=== PATIENT | female | born 1940 | race Caucasian/White ===

== ENCOUNTER 2024-11-14 13:59 | Inpatient (IN) | payer MEDICARE, OTHER, SELFPAY ==
[2024-11-14] VITALS (38 sets, daily range): BP systolic 106–164; BP diastolic 69–107; PULSE 82–105; TEMP 36.3–36.6; O2SAT 88–99; BMI 21.5; BMI 17.6
--- NOTE | 2024-11-14 14:00 | ECG_ITS ---
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
--- NOTE | 2024-11-14 14:03 | ED_ITS ---
HPI HPI - General Adult General Chief complaint: Altered Mental Status Stated complaint: WEAKNESS Time Seen by Provider: 11/14/24 14:00 Source: patient and EMR Mode of arrival: ambulance History of Present Illness HPI narrative: Patient is an 83-year-old female who presents to the emergency department for increasing confusion and frequent falls over the last 4 days. long term reports that the patient lives in assisted living. She has had generalized weakness and frequent falls and in the last 4 days has been much more confused. Today the nurse states that she had not seen the patient over the weekend and when she evaluated her today, she seemed much more confused and was having difficulty feeding herself. She was pocketing food. On arrival to the ER, patient denies any pain. Her recently was treated for influenza, patient was prophylactically placed on Tamiflu. She continues to have a cough but the assisted-living staff does not believe she has had a fever. No vomiting or diarrhea. she is a DNR Comfort Care arrest Related Data Allergies Allergy/AdvReac Type Severity Reaction Status Date / Time No Known Drug Allergies Allergy Verified 11/14/24 15:18 Opioid HPI Opioid Management Most Recent Opioid Data: No Data to Display Review of Systems ROS Constitutional Denies: fever or chills Cardiovascular Denies: chest pain Respiratory Reports: cough; Denies: shortness of breath Gastrointestinal Denies: vomiting or diarrhea Integumentary/Breast Denies: rash Neurological Reports: confusion and behavioral changes; Denies: dizziness Hematologic/Lymphatic Denies: easy bruising or easy bleeding PFSH PFSH Social History Little interest or pleasure in doing things: not at all Feeling down, depressed, or hopeless: not at all Exam Narrative Exam Narrative: Gen.: Awake, alert, in no distress Head: Normocephalic, atraumatic ENT: Moist mucous membranes, no visible signs of facial or dental injury. Respiratory: No respiratory distress, lungs clear bilaterally Cardio: Regular rate and rhythm Gastrointestinal: Abdomen is soft, nondistended and nontender to palpation, hips are nontender and pelvis is stable Extremities: Moves extremities equally, no injuries noted Psych: Normal mood and affect Neuro: No focal neuro deficit Skin: Warm, dry, intact Constitutional Vital Signs, click to edit/add: Last Vital Signs Temp 97.4 F L 11/14/24 14:01 Pulse 92 H 11/14/24 17:01 Resp 19 11/14/24 17:01 BP 156/81 H 11/14/24 17:01 Pulse Ox 91 L 11/14/24 17:01 O2 Del Method Room Air 11/14/24 14:52 Course Vital Signs Vital signs: Vital Signs Temperature 97.4 F L 11/14/24 14:01 Pulse Rate 96 H 11/14/24 14:01 Respiratory Rate 18 11/14/24 14:01 Blood Pressure 106/87 11/14/24 14:01 Pulse Oximetry 99 11/14/24 14:01 Oxygen Delivery Method Room Air 11/14/24 14:01 Temperature 97.4 F L 11/14/24 14:01 Pulse Rate 92 H 11/14/24 17:01 Respiratory Rate 19 11/14/24 17:01 Blood Pressure 156/81 H 11/14/24 17:01 Pulse Oximetry 91 L 11/14/24 17:01 Oxygen Delivery Method Room Air 11/14/24 14:52 Medical Decision Making MDM Narrative Medical decision making narrative: CTs of the head, C-spine, x-rays of the chest and pelvis with no evidence of acute process. Patient is negative for flu and COVID. She received a breathing treatment for her cough and congestion. EKG with no acute changes. Urine specimen shows no evidence of acute process although the patient has trace ketones and elevated BUN and creatinine. She is admitted to the hospitalist for confusion, frequent falls, dehydration. Stable at time of admission. She received IV magnesium, oral potassium. She was able to tolerate oral potassium with no difficulty. SUPERVISED APC VISIT, PHYSICIAN ATTESTATION: Based on the medical record the care appears appropriate. ? Medical Records Medical records reviewed: Yes I reviewed the patient's medical records Lab Data Lab results reviewed: Yes I reviewed the patient's lab results Labs: Lab Results 11/14/24 11/14/24 11/14/24 Range/Units 14:28 14:30 15:32 WBC 10.8 (4.0-11.0) 10^3/uL RBC 3.55 L (4.20-5.40) 10^6/uL Hgb 11.8 L (12.0-16.0) g/dL Hct 34.1 L (36.0-48.0) % MCV 96.1 (81.0-99.0) fL MCH 33.2 (26.7-34.0) pg MCHC 34.6 (29.9-35.2) g/dL RDW 11.9 (11.0-15.0) % Plt Count 233 (150-450) 10^3/uL MPV 10.6 (9.5-13.5) fL Neut % (Auto) 74.3 (43.0-75.0) % Lymph % (Auto) 16.0 L (20.5-60.0) % [place] % (Auto) 8.7 (1.7-12.0) % Eos % (Auto) 0.4 L (0.9-7.0) % Baso % (Auto) 0.2 (0.2-2.0) % Neut # (Auto) 8.1 H (1.4-6.5) 10^3/uL Lymph # (Auto) 1.7 (1.2-3.8) 10^3/uL [place] # (Auto) 0.9 H (0.3-0.8) 10^3/uL Eos # (Auto) 0.0 (0.0-0.7) 10^3/uL Baso # (Auto) 0.0 (0.0-0.1) 10^3/uL Abs Immat Gran (auto) 0.04 H (0.00-0.03) 10^3/uL Imm/Tot Granulo (auto) 0.4 (0.0-0.5) % PT 11.9 H (9.0-11.6) sec INR 1.14 Sodium 135 L (136-145) mmol/L Potassium 3.0 L (3.5-5.1) mmol/L Chloride 97 L (98-107) mmol/L Carbon Dioxide 33.5 H (21.0-32.0) mmol/L Anion Gap 7.5 BUN 32.0 H (7.0-18.0) mg/dL Creatinine 1.72 H (0.55-1.02) mg/dL Est GFR ( Amer) 34 L (>=60 mL/min/1.73m^2) Est GFR (Non-Af Amer) 28 L (>=60 mL/min/1.73m^2) BUN/Creatinine Ratio 18.6 Glucose 104 (74-106) mg/dL Lactate 1.4 (0.4-2.0) mmol/L Calcium 12.9 H (8.5-10.1) mg/dL Magnesium 1.2 L (1.8-2.4) mg/dL Total Bilirubin 0.7 (0.2-1.0) mg/dL AST 25 (15-37) U/L ALT 25 (14-59) U/L Alkaline Phosphatase 117 H (46-116) U/L Troponin I High Sens 14.0 (4.0-51.3) pg/mL Total Protein 7.9 (6.4-8.2) g/dL Albumin 3.3 L (3.4-5.0) g/dL Globulin 4.6 g/dL Albumin/Globulin Ratio 0.7 TSH 1.144 (0.358-3.740) uIU/mL Urine Color Yellow (YELLOW) Urine Clarity Clear (CLEAR) Urine pH 5.5 (5.0-9.0) Ur Specific [place] 1.020 (1.005-1.025) Urine Protein Negative (NEG/TRACE) mg/dL Urine Glucose (UA) Negative (NEGATIVE) mg/dL Urine Ketones Trace A (NEGATIVE) mg/dL Urine Occult Blood Negative (NEGATIVE) Urine Nitrite Negative (NEGATIVE) Urine Bilirubin Negative (NEGATIVE) Urine Urobilinogen 1.0 (0.2-1.0) EU/dL Ur Leukocyte Esterase Negative (NEGATIVE) Urine RBC 0-2 (0-2) #/HPF Urine WBC None seen (NONE SEEN) #/HPF Ur Squamous Epith Cells Few A (NONE/RARE) #/LPF Urine Crystals None seen (None Seen) #/HPF Urine Bacteria Trace A (NONE SEEN) #/HPF Urine Casts Seen A (NONE SEEN) #/LPF Hyaline Casts Few Urine Mucus None seen (NONE SEEN) Ur Culture Indicated? No Influenza Type A Ag Negative Influenza Type B Ag Negative SARS-CoV-2 Ag (CV2AG) Negative (NEGATIVE) ECG Data Attestation: I personally reviewed and interpreted this ECG as follows: (Normal sinus rhythm at a rate of 91, first-degree AV block with no acute ST elevation or ectopy. EKG reviewed by attending physician) Discharge Plan Discharge Chief Complaint: Altered Mental Status Time of Disposition Decision: 17:12 Print Language: Japanese
[2024-11-14 14:43] LABS: Basophils Percent Auto 0.2 % (0.2-2.0); Eosinophils Percent Auto 0.4 % (0.9-7.0); Hematocrit 34.1 % (36.0-48.0); Hemoglobin 11.8 g/dL (12.0-16.0); Immature Granulocytes Abs Auto 0.04 10^3/uL (0.00-0.03); Immature Granulocytes Pct Auto 0.4 % (0.0-0.5); Lymphocytes Absolute Auto 1.7 10^3/uL (1.2-3.8); Mean Corpuscular HGB Conc 34.6 g/dL (29.9-35.2); Mean Corpuscular Hemoglobin 33.2 pg (26.7-34.0); Mean Corpuscular Volume 96.1 fL (81.0-99.0); Mean Platelet Volume 10.6 fL (9.5-13.5); Monocytes Absolute Auto 0.9 10^3/uL (0.3-0.8); Monocytes Percent Auto 8.7 % (1.7-12.0); Neutrophils Absolute Auto 8.1 10^3/uL (1.4-6.5); Neutrophils Percent Auto 74.3 % (43.0-75.0); Platelet Count 233 10^3/uL (150-450); Red Blood Count 3.55 10^6/uL (4.20-5.40); Red Cell Distribution Width 11.9 % (11.0-15.0); White Blood Count 10.8 10^3/uL (4.0-11.0)
[2024-11-14] MEDS: ALBUTEROL SULFATE 2.5 MG/3 ML VIAL NEB IH (14:51)
[2024-11-14 14:54] LABS: Influenza Virus A Antigen Negative; Influenza Virus B Antigen Negative; Internal Control Within Normal Limits; SARS-CoV-2 Ag NEGATIVE (NEGATIVE)
[2024-11-14 15:04] LABS: INR 1.14; Prothrombin Time 11.9 sec (9.0-11.6)
[2024-11-14 15:18] LABS: Alanine Aminotransferase 25 U/L (14-59); Albumin Globulin Ratio 0.7; Albumin Level 3.3 g/dL (3.4-5.0); Alkaline Phosphatase 117 U/L (46-116); Anion Gap 7.5; Aspartate Amino Transferase 25 U/L (15-37); BUN Creatinine Ratio 18.6; Bilirubin Total 0.7 mg/dL (0.2-1.0); Calcium 12.9 mg/dL (8.5-10.1); Carbon Dioxide 33.5 mmol/L (21.0-32.0); Chloride 97 mmol/L (98-107); Estimated GFR (African America 34 (>=60 mL/min/1.73m^2); Estimated GFR (Non-African Ame 28 (>=60 mL/min/1.73m^2); Globulin 4.6 g/dL; Glucose 104 mg/dL (74-106); Magnesium 1.2 mg/dL (1.8-2.4); Sodium 135 mmol/L (136-145); Thyroid Stimulating Hormone 1.144 uIU/mL (0.358-3.740); Total Protein 7.9 g/dL (6.4-8.2)
[2024-11-14 15:30] LABS: Lactate/Lactic Acid 1.4 mmol/L (0.4-2.0)
[2024-11-14] MEDS: 0.9 % SODIUM CHLORIDE 1,000 ML 500 ML IV (15:30)
[2024-11-14] MEDS: MAGNESIUM SULFATE IN WATER 2 GM/50 ML PREMIX IV (15:47)
[2024-11-14] MEDS: POTASSIUM CHLORIDE 10 MEQ ER TABLET 40 MEQ PO (15:48)
[2024-11-14 16:10] LABS: Bilirubin Urine NEGATIVE (NEGATIVE); Blood Urine NEGATIVE (NEGATIVE); Clarity Urine CLEAR (CLEAR); Color Urine YELLOW (YELLOW); Glucose Urine UA NEGATIVE (NEGATIVE); Ketones Urine TRACE mg/dL (NEGATIVE); Leukocyte Esterase Urine NEGATIVE (NEGATIVE); Nitrite Urine NEGATIVE (NEGATIVE); Protein Urine NEGATIVE (NEG/TRACE); pH Urine 5.5 (5.0-9.0)
[2024-11-14 16:21] LABS: Bacteria Urine TRACE #/HPF (NONE SEEN); RBC Urine 0-2 #/HPF (0-2); WBC Urine NONE SEEN #/HPF (NONE SEEN)
[2024-11-14 16:22] LABS: Cast Seen? SEEN #/LPF (NONE SEEN); Crystals Seen? None Seen #/HPF (None Seen); Hyaline Casts Urine FEW; Mucus Urine NONE SEEN (NONE SEEN); Squamous Epithelial Cell Urine FEW #/LPF (NONE/RARE); Urine Culture Indicated NO
[2024-11-14] MEDS: LORAZEPAM 2 MG/ML VIAL 0.5 MG IV (17:32)
--- NOTE | 2024-11-14 18:59 | PC.NURSE ---
attempted to call MAGNO Carr, for phone report. no answer at this time
[2024-11-14] MEDS: POTASSIUM CHLORIDE/D5-0.9%NACL 1,000 ML 100 ML IV (22:22)
[2024-11-14] MEDS: CARVEDILOL 6.25 MG TABLET PO (22:28)
[2024-11-14] MEDS: ENOXAPARIN SODIUM 30 MG/0.3 ML SYRINGE SUBQ (22:28)
[2024-11-14] MEDS: ATORVASTATIN CALCIUM 10 MG TABLET PO (22:28)
[2024-11-14] MEDS: MONTELUKAST SODIUM 10 MG TABLET PO (22:28)
[2024-11-14] MEDS: DULOXETINE HCL 60 MG CAPSULE.DR PO (22:28)
[2024-11-15] VITALS (25 sets, daily range): BP systolic 130–185; BP diastolic 70–129; PULSE 78–124; TEMP 36.6–37.1; O2SAT 94–97
[2024-11-15] MEDS: HYDRALAZINE HCL 20 MG/ML VIAL 10 MG IVP ×2 (00:28→04:27)
[2024-11-15 06:09] LABS: Basophils Percent Auto 0.1 % (0.2-2.0); Eosinophils Absolute Auto 0.1 10^3/uL (0.0-0.7); Eosinophils Percent Auto 0.4 % (0.9-7.0); Hematocrit 33.4 % (36.0-48.0); Hemoglobin 11.6 g/dL (12.0-16.0); Immature Granulocytes Abs Auto 0.05 10^3/uL (0.00-0.03); Immature Granulocytes Pct Auto 0.4 % (0.0-0.5); Lymphocytes Absolute Auto 1.4 10^3/uL (1.2-3.8); Lymphocytes Percent Auto 9.5 % (20.5-60.0); Mean Corpuscular HGB Conc 34.7 g/dL (29.9-35.2); Mean Corpuscular Hemoglobin 32.6 pg (26.7-34.0); Mean Corpuscular Volume 93.8 fL (81.0-99.0); Mean Platelet Volume 10.6 fL (9.5-13.5); Monocytes Absolute Auto 1.3 10^3/uL (0.3-0.8); Neutrophils Absolute Auto 11.4 10^3/uL (1.4-6.5); Neutrophils Percent Auto 80.6 % (43.0-75.0); Platelet Count 225 10^3/uL (150-450); Red Blood Count 3.56 10^6/uL (4.20-5.40); Red Cell Distribution Width 11.6 % (11.0-15.0); White Blood Count 14.2 10^3/uL (4.0-11.0)
[2024-11-15 06:31] LABS: Anion Gap 13.1; Carbon Dioxide 26.2 mmol/L (21.0-32.0); Chloride 102 mmol/L (98-107); Glucose 164 mg/dL (74-106); Potassium 3.3 mmol/L (3.5-5.1); Sodium 138 mmol/L (136-145)
[2024-11-15 06:32] LABS: Alanine Aminotransferase 14 U/L (14-59); Albumin Globulin Ratio 0.7; Albumin Level 3.1 g/dL (3.4-5.0); Alkaline Phosphatase 110 U/L (46-116); Aspartate Amino Transferase 25 U/L (15-37); BUN Creatinine Ratio 16.1; Bilirubin Total 0.7 mg/dL (0.2-1.0); Calcium 11.1 mg/dL (8.5-10.1); Estimated GFR (African America 53 (>=60 mL/min/1.73m^2); Estimated GFR (Non-African Ame 44 (>=60 mL/min/1.73m^2); Globulin 4.5 g/dL; Magnesium 1.3 mg/dL (1.8-2.4); Total Protein 7.6 g/dL (6.4-8.2)
--- NOTE | 2024-11-15 08:09 | PM.HP ---
HPI H&P: HPI History of Present Illness Chief complaint: ACUTE CONFUSION, WEAKNESS, DEHYDRATION Narrative: Patient is an 83-year-old female with past medical history of HLD, HTN, neuropathy, iron def anemia, depression, GERD, hx TIA, who presents to the emergency department for increasing confusion and frequent falls over the last 4 days. Patient resides in an assisted living. Daughter is present during admission exam and states her mom has been in a rapid decline for about 2-3 weeks. She was started on Rexulti about a month ago and her behavior started to change. This was stopped about a week ago. She has baseline dementia, no Parkinson's disease. Her behaviors have become aggressive to her as to why the medication was started. She has stopped and eating and drinking and primarily laying in bed. The plan was to send her to Memory unit halfway but with her mental change she was brought to the ER yesterday. Her was diagnosed with INfluenze about 2 weeks ago, and patient has had a cough since then. ER findings: CTs of the head, C-spine, x-rays of the chest and pelvis with no evidence of acute process. Patient is negative for flu and COVID. She received a breathing treatment for her cough and congestion. EKG with no acute changes. Urine specimen shows no evidence of acute process although the patient has trace ketones and elevated BUN and creatinine (1.72). She received IV magnesium (1.2), oral potassium (K 3.0). Albumin is low at 3.1. WBC's 10.8. Patient admitted for weakness, failure to thrive, dehydration, malnutrition, hypomagnesemia, hypokalemia and AMS . Opioid HPI Opioid Management Most Recent Pain and Opioid Data: Last Pain Assessment 11/15/24 06:00 Last ORT Total Score 7 11/14/24 20:06 11/14/24 Last ORT Risk Category Moderate Risk 11/14/24 20:06 11/14/24 Review of Systems ROS Status of ROS unobtainable due to medical condition [facility] Medical History (Updated 11/15/24 @ 13:36 by Mattie Kelley DO) Type 2 diabetes mellitus ?E11.9 - Type 2 diabetes mellitus without complications (ICD-10) TIA (transient ischemic attack) ?G45.9 - Transient cerebral ischemic attack, unspecified (ICD-10) Major depressive disorder ?F32.9 - Major depressive disorder, single episode, unspecified (ICD-10) Hyperlipidemia ?E78.5 - Hyperlipidemia, unspecified (ICD-10) Cerebral infarct ?I63.9 - Cerebral infarction, unspecified (ICD-10) Family History Father Family history of diabetes mellitus Family history of hypertension Social History Within the past year, how often did you have a drink containing alcohol: never Score interpretation: A score less than 3 is consistent with normal alcohol consumption. Smoking status: Never smoker Non-prescribed substance use: denies use Highest level of school completed/degree received: high school graduate Are you now , , , , never or living with a partner: Little interest or pleasure in doing things: not at all Feeling down, depressed, or hopeless: not at all Gender Identity: female Meds Home Medications and Allergies Home Medications ?Medication ?Instructions ?Recorded ?Confirmed ?Type acetaminophen 500 mg tablet 500 mg PO Q6H PRN PAIN/FEVER 11/14/24 11/14/24 History ascorbic acid (vitamin C) 250 mg 250 mg PO DAILY 11/14/24 11/14/24 History tablet azelastine 137 mcg (0.1 %) nasal 2 spray intranasal Q12H PRN 11/14/24 11/14/24 History spray SINUSITIS bupropion HCl 300 mg 24 hr tablet, 300 mg PO .QD 11/14/24 11/14/24 History extended release calcium 500 mg (as 2 tab PO BID 11/14/24 11/14/24 History carbonate)-vitamin D3 5 mcg (200 unit) tablet (Calcium 500 + D) carvedilol 12.5 mg tablet 12.5 mg PO .QD 11/14/24 11/14/24 History carvedilol 6.25 mg tablet 6.25 mg PO .QHS 11/14/24 11/14/24 History duloxetine 60 mg capsule,delayed 60 mg PO .QHS 11/14/24 11/14/24 History release famotidine 20 mg tablet (Pepcid) 20 mg PO DAILY 11/14/24 11/14/24 History ferrous sulfate 325 mg (65 mg 325 mg PO DAILY 11/14/24 11/14/24 History iron) tablet (Feosol) gabapentin 100 mg capsule 100 mg PO .QHS 11/14/24 11/14/24 History lisinopril 5 mg tablet 5 mg PO .QD 11/14/24 11/14/24 History montelukast 10 mg tablet 10 mg PO .QHS 11/14/24 11/14/24 History ondansetron 4 mg disintegrating 4 mg PO Q6H PRN nausea and vomiting 11/14/24 11/14/24 History tablet pravastatin 20 mg tablet 20 mg PO .QHS 11/14/24 11/14/24 History Allergies Allergy/AdvReac Type Severity Reaction Status Date / Time No Known Drug Allergies Allergy Verified 11/14/24 15:18 Exam Narrative Exam Narrative: General: Patient is not alert, or oriented to person, place and time; she lays in bed and does not open her eyes for me Skin: no visible rashes, or ulcers Head: atraumatic, acephalic Heart: Normal rate and rhythm, no murmurs/rubs/gallops Lungs: bilateral crackles Abdomen: Normal audible bowel sounds, no distension, No palpable masses, no organomegaly, no rebound/guarding/ or rigidity Musculoskeletal: muscle atrophy noted, ROM is limited due to being in hospital bed, no swelling bilateral lower extremities Neuro: I cannot assess cranial nerves Constitutional Vital Signs, click to edit/add: Last Vital Signs Temp 98.8 F 11/15/24 07:30 Pulse 117 H 11/15/24 07:30 Resp 12 11/15/24 07:30 BP 162/98 H 11/15/24 07:30 Pulse Ox 97 11/15/24 07:30 O2 Del Method Room Air 11/15/24 07:30 Results Labs Labs: Short CBC 11/14/24 11/15/24 Range/Units 14:28 05:55 WBC 10.8 14.2 H (4.0-11.0) 10^3/uL Hgb 11.8 L 11.6 L (12.0-16.0) g/dL Hct 34.1 L 33.4 L (36.0-48.0) % Plt Count 233 225 (150-450) 10^3/uL BMP 11/14/24 11/15/24 14:28 05:55 Sodium 135 L 138 Potassium 3.0 L 3.3 L Chloride 97 L 102 Carbon Dioxide 33.5 H 26.2 BUN 32.0 H 19.0 H Creatinine 1.72 H 1.18 H Glucose 104 164 H Calcium 12.9 H 11.1 H Liver Function 11/14/24 11/15/24 Range/Units 14:28 05:55 Total Bilirubin 0.7 0.7 (0.2-1.0) mg/dL AST 25 25 (15-37) U/L ALT 25 14 (14-59) U/L Alkaline Phosphatase 117 H 110 (46-116) U/L Albumin 3.3 L 3.1 L (3.4-5.0) g/dL Urine 11/14/24 Range/Units 15:32 Urine Color Yellow (YELLOW) Urine Clarity Clear (CLEAR) Urine pH 5.5 (5.0-9.0) Ur Specific [place] 1.020 (1.005-1.025) Urine Protein Negative (NEG/TRACE) mg/dL Urine Glucose (UA) Negative (NEGATIVE) mg/dL Assessment and Plan Assessment and Plan (1) ANDREI (acute kidney injury): Assessment and Plan: continue IVF, most likely prerenal and related to dehydration, Cr improved this morning. was 1.72 down to 1.18. UA negative for infection (2) Metabolic encephalopathy: Assessment and Plan: No acute infections, viral testing negative, CT head and chest negative, UA negative; Most likely from dehydration, and possible progression of Age related disease/dementia, I will adjust home meds (3) Acute hypokalemia: Assessment and Plan: 3.0 up to 3.3 this morning, start on Klor con 20mEQ daily along with IV fluids (4) Hypomagnesemia: Assessment and Plan: malnutrition related, replace IV, dietary consult (5) Weakness: Assessment and Plan: frequent falls at assisted living, PT/OT evaluation (6) Severe protein-energy malnutrition: Assessment and Plan: Will get dietary consult, low albumin with several electrolyte abnormalities. (7) Uncontrolled hypertension: Assessment and Plan: I will increase coreg this morning to 25mg up from 12.5mg, she gets an evening dose of 6.25mg. (8) Parkinson disease: Assessment and Plan: Continue home meds Qualifiers: Dyskinesia presence: unspecified whether dyskinesia Fluctuating manifestations: unspecified whether manifestations fluctuate Qualified Code(s): G20.A1 - Parkinson's disease without dyskinesia, without mention of fluctuations (9) Major depressive disorder: Assessment and Plan: continue wellbutrin, duloxetine but will decrease dose Qualifiers: Active/Remission status: remission status unspecified Major depression recurrence: unspecified whether recurrent Qualified Code(s): F32.9 - Major depressive disorder, single episode, unspecified (10) Hyperlipidemia: Assessment and Plan: continue the pravastin Qualifiers: Hyperlipidemia type: unspecified Qualified Code(s): E78.5 - Hyperlipidemia, unspecified (11) Cough: Assessment and Plan: repeat chest X-ray negative for pneumonia, elevated WBC's today, will place on duonebs PRN, and Azithromycin given history of exposure to flu and possibly secondary pneumonia developing. Monitor oxygen sats Qualifiers: Cough type: acute Qualified Code(s): R05.1 - Acute cough Plan Patient is a DNRCCA continue Lovenox for DVT prophylaxis Patient is inpatient status and is expected to cross 2 midnights
[2024-11-15] MEDS: POTASSIUM CHLORIDE/D5-0.9%NACL 1,000 ML 100 ML IV ×2 (08:40→21:13)
--- NOTE | 2024-11-15 09:25 | SWNOTE1 ---
Pt is from [facility]. SW received a message from No at . She stated that pt and her [facility]. She stated if pt does need SNF, they only have 1 bed available and want to try to keep pt at [facility] where her is. She stated to let her know as soon as possible if pt needs SNF, as they have another referral already. SW to see if pt has had therapy yet. Pt is also in observation status at this time.
[2024-11-15] MEDS: LISINOPRIL 5 MG TABLET PO (09:35)
[2024-11-15] MEDS: CARVEDILOL 25 MG TABLET PO (09:35)
[2024-11-15] MEDS: BUPROPION HCL 150 MG XL TABLET 24H 300 MG PO (09:35)
[2024-11-15] MEDS: FERROUS SULFATE 325 MG TABLET PO (09:36)
[2024-11-15] MEDS: FAMOTIDINE 20 MG TABLET PO (09:36)
[2024-11-15] MEDS: POTASSIUM CHLORIDE 10 MEQ ER TABLET 20 MEQ PO (09:36)
[2024-11-15] MEDS: MAGNESIUM SULFATE IN WATER 2 GM/50 ML PREMIX IV (11:45)
--- NOTE | 2024-11-15 12:28 | CM.NOTE ---
Rounds made with Dr. Kelley, discussed plan of care with pt's daughter. Per daughter pt has had a steady decline since August. Daughter has spoke with No at [facility] and were in the process discussing pt transfer to Memory unit. Dr. Kelley will change pt to inpt status and get chest x-ray and correct electrolyses. PT and OT will evaluate pt for further discharge planning. Daughter is going to [facility] again today to speak with No regarding options at discharge.
--- NOTE | 2024-11-15 12:31 | SWNOTE1 ---
LORIE spoke to case management and the doctor is going to complete some more testing. At this time unsure of the plan for discharge for pt. [facility] care, hospice, and SNF have all been discussed. LORIE spoke with No at to update her. She did state they have tried contacting the daughter for the past week to get pt to a higher level of care, but daughter had not made a decision on it yet. No advised SW to let daughter know to call her and they can discuss the financial piece of moving pt to higher level of care at [place]. See case management note for further information. Daughter is going to go to [place] to meet with No to discuss finances and level of care needs.
--- NOTE | 2024-11-15 13:47 | SWNOTE1 ---
LORIE faxed over updates to [facility]. Updates included; ED note, H&P, face sheet, nursing notes, PT/OT, vitals, labs, and diagnostic imaging.
--- NOTE | 2024-11-15 14:22 | SWNOTE1 ---
SW did receive an email from No at [place] and pt's daughter did come talk to her and the plan is for her to transition in to roasterman care at [place] at discharge. LORIE completed PASR online and sent the results to No at .
[2024-11-15] MEDS: AZITHROMYCIN 500 MG in 0.9 % SODIUM CHLORIDE 250 ML 250 MG IV (16:37)
[2024-11-15] MEDS: CARVEDILOL 6.25 MG TABLET PO (21:12)
[2024-11-15] MEDS: ACETAMINOPHEN 500 MG TABLET PO (21:12)
[2024-11-15] MEDS: ATORVASTATIN CALCIUM 10 MG TABLET PO (21:12)
[2024-11-15] MEDS: DULOXETINE HCL 60 MG CAPSULE.DR PO (21:12)
[2024-11-15] MEDS: ENOXAPARIN SODIUM 30 MG/0.3 ML SYRINGE SUBQ (21:12)
[2024-11-16] VITALS (8 sets, daily range): BP systolic 183; BP diastolic 97; PULSE 80–102; O2SAT 97
[2024-11-16 06:34] LABS: Basophils Percent Auto 0.1 % (0.2-2.0); Eosinophils Absolute Auto 0.1 10^3/uL (0.0-0.7); Eosinophils Percent Auto 0.7 % (0.9-7.0); Hematocrit 29.7 % (36.0-48.0); Hemoglobin 10.3 g/dL (12.0-16.0); Immature Granulocytes Abs Auto 0.03 10^3/uL (0.00-0.03); Immature Granulocytes Pct Auto 0.3 % (0.0-0.5); Lymphocytes Absolute Auto 1.2 10^3/uL (1.2-3.8); Lymphocytes Percent Auto 10.5 % (20.5-60.0); Mean Corpuscular HGB Conc 34.7 g/dL (29.9-35.2); Mean Corpuscular Hemoglobin 33.2 pg (26.7-34.0); Mean Corpuscular Volume 95.8 fL (81.0-99.0); Mean Platelet Volume 10.8 fL (9.5-13.5); Monocytes Absolute Auto 1.2 10^3/uL (0.3-0.8); Monocytes Percent Auto 10.2 % (1.7-12.0); Neutrophils Absolute Auto 9.3 10^3/uL (1.4-6.5); Neutrophils Percent Auto 78.2 % (43.0-75.0); Platelet Count 209 10^3/uL (150-450); Red Cell Distribution Width 11.9 % (11.0-15.0); White Blood Count 11.8 10^3/uL (4.0-11.0)
[2024-11-16 06:52] LABS: Alanine Aminotransferase 17 U/L (14-59); Albumin Globulin Ratio 0.6; Albumin Level 2.8 g/dL (3.4-5.0); Alkaline Phosphatase 98 U/L (46-116); Aspartate Amino Transferase 37 U/L (15-37); BUN Creatinine Ratio 10.3; Bilirubin Total 0.6 mg/dL (0.2-1.0); Calcium 9.1 mg/dL (8.5-10.1); Carbon Dioxide 27.7 mmol/L (21.0-32.0); Chloride 105 mmol/L (98-107); Estimated GFR (African America >60 (>=60 mL/min/1.73m^2); Estimated GFR (Non-African Ame 55 (>=60 mL/min/1.73m^2); Globulin 4.4 g/dL; Glucose 134 mg/dL (74-106); Magnesium 1.4 mg/dL (1.8-2.4); Potassium 3.7 mmol/L (3.5-5.1); Sodium 140 mmol/L (136-145); Total Protein 7.2 g/dL (6.4-8.2)
--- NOTE | 2024-11-16 08:25 | P.PN_ITS ---
Exam Narrative Exam Narrative: General: Patient is not alert, or oriented to person, place and time; she lays in bed and does not open her eyes for me Skin: no visible rashes, or ulcers Head: atraumatic, acephalic Heart: Normal rate and rhythm, no murmurs/rubs/gallops Lungs: bilateral crackles Abdomen: Normal audible bowel sounds, no distension, No palpable masses, no organomegaly, no rebound/guarding/ or rigidity Musculoskeletal: muscle atrophy noted, ROM is limited due to being in hospital bed, no swelling bilateral lower extremities Neuro: I cannot assess cranial nerves Constitutional Vital Signs, click to edit/add: Last Vital Signs Temp 97.8 F 11/15/24 19:59 Pulse 92 H 11/16/24 08:00 Resp 16 11/16/24 07:30 BP 183/97 H 11/16/24 07:30 Pulse Ox 97 11/16/24 07:30 O2 Del Method Room Air 11/16/24 07:30 Progress Note: Objective Labs Labs: Short CBC 11/16/24 Range/Units 06:17 WBC 11.8 H (4.0-11.0) 10^3/uL Hgb 10.3 L (12.0-16.0) g/dL Hct 29.7 L (36.0-48.0) % Plt Count 209 (150-450) 10^3/uL BMP 11/16/24 06:17 Sodium 140 Potassium 3.7 Chloride 105 Carbon Dioxide 27.7 BUN 10.0 Creatinine 0.97 Glucose 134 H Calcium 9.1 Liver Function 11/16/24 Range/Units 06:17 Total Bilirubin 0.6 (0.2-1.0) mg/dL AST 37 (15-37) U/L ALT 17 (14-59) U/L Alkaline Phosphatase 98 (46-116) U/L Albumin 2.8 L (3.4-5.0) g/dL Progress Note: A&P Assessment and Plan (1) Metabolic encephalopathy: Assessment and Plan: viral testing negative, CT head and chest negative, UA negative; Most likely from dehydration, and possible progression of Age related disease/dementia, I will adjusted home meds (2) URI, acute: Assessment and Plan: Patient has active cough with URI symptoms, I have added IV Azithromycin and Robitussin and duonebs (3) Acute hypokalemia: Assessment and Plan: resolved, Currently 3.7 (4) ANDREI (acute kidney injury): Assessment and Plan: resolved, Cr 0.97 (5) Hypomagnesemia: Assessment and Plan: replace today, mag 1.4 (6) Weakness: Assessment and Plan: pt/ot, plan for technician terminal and repeater care (7) Severe protein-energy malnutrition: Assessment and Plan: dietary cosult (8) Uncontrolled hypertension: Assessment and Plan: continue with Coreg (9) Type 2 diabetes mellitus: Assessment and Plan: monitor sugars. Qualifiers: Diabetes mellitus technician terminal and repeater insulin use: without usp use Diabetes mellitus complication status: without complication Qualified Code(s): E11.9 - Type 2 diabetes mellitus without complications (10) Major depressive disorder: Assessment and Plan: continue wellbutrin and cymbalta Qualifiers: Major depression recurrence: unspecified whether recurrent Active/Remission status: remission status unspecified Qualified Code(s): F32.9 - Major depressive disorder, single episode, unspecified (11) Hyperlipidemia: Assessment and Plan: continue statin Qualifiers: Hyperlipidemia type: unspecified Qualified Code(s): E78.5 - Hyperlipidemia, unspecified (12) TIA (transient ischemic attack): Assessment and Plan: history of, no acute stroke seen on CT head. continue statin. Plan Patient is a DNRCCA Continue Lovenox
[2024-11-16] MEDS: CARVEDILOL 25 MG TABLET PO (08:40)
[2024-11-16] MEDS: FAMOTIDINE 20 MG TABLET PO (08:40)
[2024-11-16] MEDS: FERROUS SULFATE 325 MG TABLET PO (08:40)
[2024-11-16] MEDS: BUPROPION HCL 150 MG XL TABLET 24H PO (08:40)
[2024-11-16] MEDS: POTASSIUM CHLORIDE 10 MEQ ER TABLET 20 MEQ PO (08:40)
[2024-11-16] MEDS: POTASSIUM CHLORIDE/D5-0.9%NACL 1,000 ML 100 ML IV (10:10)
[2024-11-16] MEDS: ENSURE HP 237 ML LIQUID PO (10:11)
[2024-11-16] MEDS: MAGNESIUM SULFATE IN WATER 4 GM/100 ML PIGGYBACK IV (10:11)
--- NOTE | 2024-11-16 10:44 | SWNOTE1 ---
SW received message from case management and pt is stable for discharge to [facility] today. LORIE udpated No at and will set up transport and send orders once available.
--- NOTE | 2024-11-16 12:00 | CM.NOTE ---
Rounds made with Dr. Kelley. Plan for discharge today to [facility].
--- NOTE | 2024-11-16 12:09 | SWNOTE1 ---
LORIE stopped in to speak with pt to discuss dc plans and review IMM. Prior to going in LORIE called No at [place] to confirm that pt is returning to [place], but pen[facility]. No did confirm with SW that she is going [facility] No voiced she discussed the rates with daughter in regards to private pay penitentiary yesterday. SW went in room, pt's 2 daughters and pt's in room as well. During conversation 2 other family members arrived. LORIE advised family that pt will be returning [facility] heat[facility] to [place] today. Pt's daughter voiced she does not understand the difference between SNF and oil heaterman and she was under the impression that pt is going skilled. LORIE advised family that LORIE just spoke to No at and she voiced she gave family private pay amount for the healthcare side for [facility]. LORIE explained the difference between skilled and oil heaterman and how Medicare is involved. Pt's daughter voiced frustration as she felt this was not relayed and she did not even know she was discharging today. Pt's daughter stated that she was told the doctor would be back later. SW offered to get the doctor so we could all discuss discharge together. Pt's daughter in agreement. SW, doctor, and family all in room to discuss dc planning. Please see doctor discharge summary. It was discussed that pt is being discharged today and family was in agreement with this plan and wants LORIE to confirm room number and make sure the rates are same as discussed yesterday with No. Pt will return oil heaterman at [place]. Pt's family in agreement that pt will need stretcher for transport due to confusion.
--- NOTE | 2024-11-16 12:18 | SWNOTE1 ---
Important Message from Medicare reviewed and discussed with patient's daughter. Pt's daughter verbalized understanding and signed the form. Original given to patient's daughter and copy placed in patient?s chart.
--- NOTE | 2024-11-16 12:18 | SWNOTE1 ---
LORIE did confirm with No that the rate is the same as discussed yesterday with No at [facility]. SW also provided room number to family, which is 308 at [facility].
--- NOTE | 2024-11-16 13:24 | SWNOTE1 ---
LORIE called and set up stretcher transport. [facility] will be here around 15:30 to transport pt to [facility] intermediate frame tender. SW notified nurse, [facility], and family of transport time.
--- NOTE | 2024-11-16 14:00 | P.DS_ITS ---
DS: Providers Provider Date of admission: 11/15/24 11:46 Primary care physician: JIMMY CHRISTOPHER DO Attending physician on admission: Mattie Kelley Consults: 11/14/24 Consult to Dietitian Routine Reason for consultation: poor appetite 11/14/24 18:28 Occupational Therapy Eval and Treat Routine Reason for consultation: general deconditioning from [facility] Has provider been notified: No Physical Therapy Eval and Treat Routine Reason for consultation: general deconditioning from [facility] Has provider been notified: No Discharging clinician: Mattie Kelley DS: Diagnosis Discharge Diagnosis (1) Metabolic encephalopathy: (2) URI, acute: (3) Acute hypokalemia: (4) ANDREI (acute kidney injury): (5) Hypomagnesemia: (6) Weakness: (7) Severe protein-energy malnutrition: (8) Uncontrolled hypertension: (9) Type 2 diabetes mellitus: Qualifiers: Diabetes mellitus complication status: without complication Diabetes mellitus manager terminal insulin use: without shelter use Qualified Code(s): E11.9 - Type 2 diabetes mellitus without complications (10) Major depressive disorder: Qualifiers: Active/Remission status: remission status unspecified Major depression recurrence: unspecified whether recurrent Qualified Code(s): F32.9 - Major depressive disorder, single episode, unspecified (11) Hyperlipidemia: Qualifiers: Hyperlipidemia type: unspecified Qualified Code(s): E78.5 - Hyperlipidemia, unspecified (12) TIA (transient ischemic attack): DS: Summary Hospital Course Hospital Course: Patient is an 83-year-old female with past medical history of HLD, HTN, neuropathy, iron def anemia, depression, GERD, hx TIA, who presents to the emergency department for increasing confusion and frequent falls over the last 4 days. Patient resides in an assisted living. Daughter is present during admission exam and states her mom has been in a rapid decline for about 2-3 weeks. She was started on Rexulti about a month ago and her behavior started to change. This was stopped about a week ago. She has baseline dementia, no Parkinson's disease. Her behaviors have become aggressive to her as to why the medication was started. She has stopped and eating and drinking and primarily laying in bed. The plan was to send her to [facility] terminal but with her mental change she was brought to the ER yesterday. Her was diagnosed with INfluenze about 2 weeks ago, and patient has had a cough since then. ER findings: CTs of the head, C-spine, x-rays of the chest and pelvis with no evidence of acute process. Patient is negative for flu and COVID. She received a breathing treatment for her cough and congestion and was started on Azithromycin. She will complete 5 day Azithromycin pack. EKG showed no acute changes. Urine specimen shows no evidence of acute process although the patient has trace ketones and elevated BUN and creatinine (1.72) Which resolved after IV hydration, at the time of discharge Cr 0.97. She received IV magnesium (1.2) now 1.4, oral potassium (K 3.0) at the time of discharge is 3.7 . Albumin is low at 3.1. WBC's 10.8. I have increased her Coreg to 12.5mg BID at the time of discharge. I have also decreased her Wellbutrin to 150mg daily and her Cymbalta to 30mg daily. I have stopped her Gabapentin 100mg qhs. Long discussion today with family, including 2 daughters. She is more alert today but still not able to participate in physical therapy. The plan is for her to return to [facility] in their [facility] Support Technician unit. Gypsy, social work, and Myself were present for family meeting. I feel patient is more alert today and facility can continue to decrease medications. We discussed the possibility of hospice consult but family is ok to wait to discuss with facility as she is in no eminent condition at this time. Due to her declining mental status due to her dementia, I feel manager terminal is the best place for her as therapy notes even reveal she is not able to participate in assisted. Family understands all this. They are in agreement to her leaving today and returning to [facility]-Term Care. I have prescribed Z-daphney for 5 days and decreased several medications. She will be on soft diet and may advance as tolerated. Status at Discharge Functional status at discharge: wheelchair bound Overall status at discharge: patient is back to baseline Time Spent with Patient Time attestation: Total time spent providing and/or coordinating discharge services: Time spent: greater than 30 minutes Exam Narrative Exam Narrative: General: Patient is alert, but not oriented to person, place or time; she does not answer questions or say words Skin: no visible rashes, or ulcers Head: atraumatic, acephalic Heart: Normal rate and rhythm, no murmurs/rubs/gallops Lungs: clear, no wheezes Abdomen: Normal audible bowel sounds, no distension, No palpable masses, no organomegaly, no rebound/guarding/ or rigidity Musculoskeletal: muscle atrophy noted, ROM is limited, no swelling bilateral lower extremities Neuro: I cannot assess cranial nerves due to patient's mental status Constitutional Vital Signs, click to edit/add: Last Vital Signs Temp 97.8 F 11/15/24 19:59 Pulse 100 H 11/16/24 13:59 Resp 16 11/16/24 07:30 BP 183/97 H 11/16/24 07:30 Pulse Ox 97 11/16/24 07:30 O2 Del Method Room Air 11/16/24 07:30 DS: Data Data Completed and Pending Labs on day of discharge: Labs from last 24 hours 11/16/24 06:17 WBC 11.8 H RBC 3.10 L Hgb 10.3 L Hct 29.7 L MCV 95.8 MCH 33.2 MCHC 34.7 RDW 11.9 Plt Count 209 MPV 10.8 Neut % (Auto) 78.2 H Lymph % (Auto) 10.5 L [place] % (Auto) 10.2 Eos % (Auto) 0.7 L Baso % (Auto) 0.1 L Neut # (Auto) 9.3 H Lymph # (Auto) 1.2 [place] # (Auto) 1.2 H Eos # (Auto) 0.1 Baso # (Auto) 0.0 Abs Immat Gran (auto) 0.03 Imm/Tot Granulo (auto) 0.3 Sodium 140 Potassium 3.7 Chloride 105 Carbon Dioxide 27.7 Anion Gap 11.0 BUN 10.0 Creatinine 0.97 Est GFR ( Amer) >60 Est GFR (Non-Af Amer) 55 L BUN/Creatinine Ratio 10.3 Glucose 134 H Calcium 9.1 Magnesium 1.4 L Total Bilirubin 0.6 AST 37 ALT 17 Alkaline Phosphatase 98 Total Protein 7.2 Albumin 2.8 L Globulin 4.4 Albumin/Globulin Ratio 0.6 Discharge Plan Discharge Disposition: Xfer LTC Discharge Medications: New Ensure Active Protein-Muscle Liquid 1 ea PO BID Qty: 5688 0RF bupropion HCl 150 mg Tablet Extended Release 24 Hr 150 mg PO DAILY 30 Days Qty: 30 0RF duloxetine [Cymbalta] 30 mg capsule,delayed release(DR/EC) 30 mg PO DAILY Qty: 30 0RF azithromycin [Zithromax] 250 mg tablet See Rx Instructions .ROUTE .COMPLEX Qty: 6 0RF Rx Instructions: For 250 mg dose pack: take 500 mg today (day 1), then 250 mg for 4 days (days 2-5) Continued azelastine 137 mcg (0.1 %) spray,non-aerosol 2 spray INTRANASAL Q12H PRN (Reason: SINUSITIS) lisinopril 5 mg tablet 5 mg PO .QD Rx Instructions: HOLD FOR SBP <110 pravastatin 20 mg tablet 20 mg PO .QHS acetaminophen 500 mg tablet 500 mg PO Q6H PRN (Reason: PAIN/FEVER) ascorbic acid (vitamin C) 250 mg tablet 250 mg PO DAILY Patient Comments: MON, WEDS, WEDNESDAY ONLY ferrous sulfate [Feosol] 325 mg (65 mg iron) tablet 325 mg PO DAILY calcium carbonate-vitamin D3 [Calcium 500 + D] 500 mg-5 mcg (200 unit) tablet 2 tab PO BID famotidine [Pepcid] 20 mg tablet 20 mg PO DAILY Changed carvedilol 12.5 mg tablet 12.5 mg PO BID Qty: 0 0RF Patient Comments: HOLD FOR SYSTOLIC <100 Discontinued bupropion HCl 300 mg tablet extended release 24 hr 300 mg PO .QD carvedilol 6.25 mg tablet 6.25 mg PO .QHS duloxetine 60 mg capsule,delayed release(DR/EC) 60 mg PO .QHS gabapentin 100 mg capsule 100 mg PO .QHS montelukast 10 mg tablet 10 mg PO .QHS ondansetron 4 mg tablet,disintegrating 4 mg PO Q6H PRN (Reason: nausea and vomiting) Print Language: Portuguese Activity Restrictions/Additional Instructions: Soft diet, advance as tolerated Chemical Processing Technician/Devulcanizer Operator Instructions: Discharge to [facility] Forms: Portal Instructions Discharge location: [facility] terminal
--- NOTE | 2024-11-16 14:20 | SWNOTE1 ---
LORIE faxed dc med rec, CRF, updated vitals, labs, and PT/OT from today to [place].
--- NOTE | 2024-11-17 09:13 | SWNOTE1 ---
LORIE faxed dc summary to [facility].
== END 2024-11-16 15:30 | DRG 640 ==
LOC: ER 17:14 → MS 19:46
PROVIDERS: Physician Assistant; Registered Nurse; Admitting Provider Family Medicine; Emergency Provider Emergency Medicine; PCP Internal Medicine; Visit Provider Family Medicine
DX: E83.42 Hypomagnesemia (principal); E43 Unspecified severe protein-calorie malnutrition; G93.41 Metabolic encephalopathy; N17.9 Acute kidney failure, unspecified; Z68.1 Body mass index [BMI] 19.9 or less, adult; E86.0 Dehydration; E78.5 Hyperlipidemia, unspecified; I10 Essential (primary) hypertension; D50.9 Iron deficiency anemia, unspecified; F32.A Depression, unspecified; K21.9 Gastro-esophageal reflux disease without esophagitis; Z86.73 Personal history of transient ischemic attack (TIA), and cerebral infarction without residual deficits; R53.1 Weakness; R62.7 Adult failure to thrive; E87.6 Hypokalemia; Z91.81 History of falling; E11.40 Type 2 diabetes mellitus with diabetic neuropathy, unspecified; Z79.899 Other long term (current) drug therapy; R05.1 Acute cough; Z66 Do not resuscitate; J06.9 Acute upper respiratory infection, unspecified; F03.90 Unspecified dementia, unspecified severity, without behavioral disturbance, psychotic disturbance, mood disturbance, and anxiety
CPT/HCPCS: 36415; 70450; 71045; 72125; 72170; 80053; 81001; 83605; 83735; 84443; 84484; 85025; 85610; 87040; 87804; 87811; 93005; 94640; 94761; 96361; 96365; 96366; 96367; 96375; 96376; 97165; 97535; 99285; G0378; J0360; J0456; J1650; J2060; J3475